=== PATIENT | female | born 2000 | race African-American/Black ===

== ENCOUNTER 2024-03-17 23:42 | Emergency (ER) | payer SELFPAY ==
[~2024-03-17] VITALS: Ht 162.6 cm; Wt 83.0 kg
[2024-03-18 00:02] VITALS: O2SAT 98
[2024-03-18] MEDS: DIPHENHYDRAMINE 50MG/ML VIAL IV ONE (00:32)
[2024-03-18] MEDS: ONDANSETRON HCL 4MG/2ML INJ IV ONE (00:32)
[2024-03-18] MEDS: DEXAMETHASONE 4MG/ML 1ML VIAL IV ONE (00:32)
[2024-03-18] MEDS: FAMOTIDINE 20MG/2ML VIAL IV ONE (00:32)
[2024-03-18] MEDS ORDERED: DIPH25CA83 MT (01:46)
[2024-03-18] MEDS ORDERED: EPIN0.3P3 IM (01:46)
[2024-03-18 03:17] VITALS: BP 125/78; PULSE 85; RESP 18; TEMP 36.72516; O2SAT 98
== END 2024-03-18 03:18 | disposition home or self-care (01) ==
LOC: ER 23:53
DX: T78.40XA Allergy, unspecified, initial encounter (principal); Z88.6 Allergy status to analgesic agent; X58.XXXA Exposure to other specified factors, initial encounter
CPT/HCPCS: 99284; 96374; 96375; J1100; J1200; J3490; J2405